=== PATIENT | female | born 1995 | race Caucasian/White ===

== ENCOUNTER → 2018-09-12 | Outpatient (CLI) | payer OTHER ==
[~2018-09-12] VITALS: Ht 167.6 cm; Wt 85.3 kg
[~2018-09-12] MED LIST: ACHD5005 PO; BIRTH CONTROL PO; ETON1VAG VG; HYDR-1231 PO; IBUP-1773 PO; SULF1TAB38 PO
== END | disposition home or self-care (01) ==
LOC: PREOP 15:02
PROVIDERS: ATTEND Obstetrics & Gynecology
DX: Z01.818 Encounter for other preprocedural examination (principal)

== ENCOUNTER → 2018-09-12 | Outpatient (CLI) | payer OTHER ==
--- NOTE | 2018-09-12 13:15 | Diagnostic Imaging Report ---
PROCEDURE: US Non-ob pelvis comp/trans. TECHNIQUE: Multiple realtime grayscale images were obtained of the pelvis in various projections endovaginally. Transabdominal imaging was also performed. INDICATION: Pelvic mass. The uterus is small measuring 4.7 x 3.4 x 3.3 cm. Endometrium is 5 mm in thickness. No myometrial mass is detected. The right ovary was not visualized. Left ovary contains a large complex cystic mass measuring 10.2 x 8.6 x 6.9 cm. This does contain internal debris. No definite internal vascularity is seen. IMPRESSION: Large complex cystic mass involving the left adnexa, likely ovarian and secondary to hemorrhagic cyst. Close followup is recommended to confirm stability. Dictated by: Dictated on workstation # [id number]
== END ==
LOC: RAD 11:49
PROVIDERS: ATTEND Nurse Practitioner
DX: R19.09 Other intra-abdominal and pelvic swelling, mass and lump (principal)
CPT/HCPCS: 76830; 76856

== ENCOUNTER 2018-09-13 05:51 | Day surgery (SDC) | payer OTHER ==
[~2018-09-13] VITALS: Ht 167.6 cm; Wt 85.3 kg
[~2018-09-13 05:51] MED LIST changes: -ACHD5005 PO; -IBUP-1773 PO
--- OUTSIDE RECORDS SUMMARY | 2018-09-13 05:55 | XMS REPORT ---
Author Author SYDNEE VALERIO Organization [facility] Address [address] [place] [address] Phone Unavailable Care Team Providers Care Leasing Consultant Name Role Phone SYDNEE VALERIO Unavailable Unavailable PROBLEMS Unknown Problems ALLERGIES No Information ENCOUNTERS Encounter Location Date Diagnosis [facility] [address], [place] [address] March, Visit for TB skin test Z11.1 and Encounter for physical examination related to employment Z02.1 [facility] [address], [place] [address] Jul, Screening for STDs (sexually transmitted diseases) Z11.3 [facility] [id number] [place] [address] Jan, Encounter for PPD test Z11.1 [facility] [id number] [place] [address] May, MENINGOCOCCAL DX V03.89 IMMUNIZATIONS No Known Immunizations SOCIAL HISTORY Never Assessed REASON FOR VISIT Work Physical/TB (wants it ran through insurance)-Elena BURNHAM PLAN OF CARE Activity Details Follow Up 48-72 hours Reason: VITAL SIGNS Height 66.5 in 2018-03-14 Weight 183 lbs 2018-03-14 Heart Rate 97 bpm 2018-03-14 BMI 29.09 kg/m2 2018-03-14 Blood pressure systolic 118 mmHg 2018-03-14 Blood pressure diastolic 80 mmHg 2018-03-14 MEDICATIONS Unknown Medications RESULTS No Results PROCEDURES Procedure Date Ordered Result Body Site TB INTRADERMAL 2018-03-14 Negative TB INTRADERMAL TEST March 14, 2018 INSTRUCTIONS MEDICATIONS ADMINISTERED No Known Medications
--- OUTSIDE RECORDS SUMMARY | 2018-09-13 05:55 | XMS REPORT ---
Author ISMAEL Ocampo [facility] eClinicalWorks Address Unknown Phone Unavailable Care Team Providers Care Train Crew Member Name Role Phone ISMAEL SALMON CP Unavailable Allergies No Known Allergies Problems Problem Type Condition Code Onset Dates Condition Status Assessment Encounter for PPD test Z11.1 Active Medications No Known Medications Procedures Procedure Coding System Code Date TB INTRADERMAL TEST CPT-4 79310 February 14, 2016 Results No Known Results Summary Purpose eClinicalWorks Submission
--- OUTSIDE RECORDS SUMMARY | 2018-09-13 05:55 | XMS REPORT ---
Author Author JEFFREY PALAFOX [facility] Address [address] [place] [address] Care Team Providers Care Actuarial Intern Name Role Phone JEFFREY PALAFOX Unavailable PROBLEMS Unknown Problems ALLERGIES No Known Allergies ENCOUNTERS Encounter Location Date Diagnosis [facility] [address] [address] March, [facility] [id number] [address] Jul, Screening for STDs (sexually transmitted diseases) Z11.3 [place] [address] [address] Jan, Encounter for PPD test Z11.1 [facility] [id number] [address] May, MENINGOCOCCAL DX V03.89 IMMUNIZATIONS No Known Immunizations SOCIAL HISTORY Never Assessed REASON FOR VISIT STD check- boyfriend has chlamydia JStrasserRN PLAN OF CARE Activity Details Follow Up prn Reason: VITAL SIGNS Height 66.5 in 2017-07-29 Weight 177.6 lbs 2017-07-29 Temperature 98.6 degrees Fahrenheit 2017-07-29 Heart Rate 72 bpm 2017-07-29 Respiratory Rate 18 2017-07-29 BMI 28.23 kg/m2 2017-07-29 Blood pressure systolic 126 mmHg 2017-07-29 Blood pressure diastolic 88 mmHg 2017-07-29 MEDICATIONS Unknown Medications RESULTS Name Result Date Reference Range CULTURE, GENITAL 2017-07-29 Genital Culture, Routine Final report Result 1 TRICHOMONAS (IN HOUSE) 2017-07-29 TRICHOMONAS NEGATIVE Control + Lot # [id number] Exp date 2018-03-31 BACTERIAL VAGINOSIS (IN HOUSE) 2017-07-29 RESULTS NEGATIVE Control + Lot # [id number] Exp date 2018-03 GC/CHLAM PROBE (STATE) 2017-07-29 CHLAMYDIA GC PROCEDURES Procedure Date Ordered Result Body Site No Charge Jul 29, 2017 CULTURE, BACTERIA, OTHER Jul 29, 2017 TRICHOMONAS ASSAY W/OPTIC Jul 29, 2017 Bacterial Vaginosis In House Jul 29, 2017 INSTRUCTIONS MEDICATIONS ADMINISTERED No Known Medications
--- OUTSIDE RECORDS SUMMARY | 2018-09-13 05:56 | XMS REPORT | Continuity of Care Document ---
Author Author [facility] Organization [facility] Address Unknown Phone Unavailable Allergies Active Description Code Type Severity Reaction Onset Reported/Identified Relationship to Patient Clinical Status Yes No Known Drug Allergies [id number] Drug Allergy Unknown N/A 09/12/2018 Medications There is no data. Problems There is no data. Procedures There is no data. Results Test Result Range CULTURE, GENITAL - 07/29/17 16:22 Genital Culture, Routine Final report NRG Result 1 NRG Genital Culture, Routine - 07/29/17 16:22 Genital Culture, Routine Note Encounters ACCT No. Visit Date/Time Discharge Status Pt. Type Provider Facility Loc./Unit Complaint [id number] 07/05/2014 22:25:00 07/05/2014 23:25:00 DIS Emergency [id number] 09/13/2018 05:51:00 ACT Outpatient NAY FISHMAN DO [facility] SYMPTOMATIC LEFT OVARIAN CYST, PELVIC PAIN [id number] 09/12/2018 15:02:00 ACT Outpatient NAY FISHMAN DO [facility] PREOP SYMPTOMATIC LEFT OVARIAN CYST, PELVIC PAIN [id number] 09/12/2018 11:49:00 ACT Outpatient BETH GUEVARA [facility] RAD PELVIC MASS [id number] 03/14/2018 10:00:00 03/14/2018 23:59:59 CLS Outpatient ZEN MCKEON [facility] [id number] 07/29/2017 15:40:00 Document Registration [id number] 08/01/2017 13:05:00 Document Registration
[2018-09-13] MEDS: LACTATED RINGERS 1,000 ML IV PRN ×2 (06:15→08:30)
[2018-09-13 06:25] VITALS: BP 128/81
[2018-09-13] MEDS ORDERED: MIDAZOLAM 2 MG/2 ML (VERSED) VIAL ONE (06:45)
[2018-09-13] MEDS ORDERED: DEXAMETHASONE 10 MG/ML (DECADRON) 1 ML VIAL ONE (06:45)
[2018-09-13] MEDS ORDERED: fentaNYL INJECTION 100 MCG/2 ML AMP ONE ×2 (06:45→09:57)
[2018-09-13] MEDS ORDERED: ONDANSETRON 4 MG/2 ML (SDV) Z0FRAN ONE (06:45)
[2018-09-13] MEDS ORDERED: LIDOCAINE PF 2% 5 ML (XYLOCAINE) VIAL ONE (06:45)
[2018-09-13] MEDS ORDERED: proPOfol 200 MG/20 ML (DIPRIVAN) VIAL IV ONE (06:45)
[2018-09-13] MEDS ORDERED: SEVOFLURANE (ULTANE) 15 ML INHAL SOLN ONE ×6 (06:45→09:59)
[2018-09-13] MEDS ORDERED: ROCURONIUM 10 MG/ML 5 ML SYRINGE IV ONE (06:48)
[2018-09-13] MEDS ORDERED: ceFAZolin 1 GM/NS 50 ML IVPB IV ONE ×2 (07:15)
[2018-09-13] MEDS ORDERED: BUP/EPI 0.5% 1:200,000 (SENSORCAINE) 30 ML VIAL ONE (07:35)
[2018-09-13] MEDS ORDERED: MEPERIDINE (DEMEROL) INJ 50 MG/ML IVP ONE (09:00)
[2018-09-13] MEDS ORDERED: ONDANSETRON 4 MG/2 ML (SDV) Z0FRAN IVP PRN ×2 (09:00→10:15)
[2018-09-13] MEDS ORDERED: morphine INJ 10 MG/ML 1ML (SYR OR VIAL) IVP ONE (09:00)
[2018-09-13] MEDS ORDERED: HYDROmorphone 2 MG/ML VIAL (DILAUDID) IV ONE (09:00)
[2018-09-13] MEDS ORDERED: NEOSTIGMINE 1 MG/ML 5 ML SYRINGE ONE (09:06)
[2018-09-13] MEDS ORDERED: GLYCOPYRROLATE 0.2 MG/ML (ROBINUL) 2 ML VIAL ONE (09:06)
[2018-09-13] MEDS ORDERED: BUPIVACAINE 0.25% 30 ML (SENSORCAINE) VIAL ONE (09:50)
[2018-09-13] MEDS ORDERED: KETOROLAC 30 MG/ML VIAL ONE (10:05)
[2018-09-13] MEDS ORDERED: D5 LR IV SOLUTION 1,000 ML IV SCH (10:13)
[2018-09-13] MEDS ORDERED: KETOROLAC 30 MG/ML VIAL IVP ONE ×2 (10:15)
[2018-09-13] MEDS ORDERED: HYDROcodone/APAP 5 MG/325 MG (LORTAB) TAB PO PRN (10:15)
[2018-09-13] MEDS ORDERED: KETOROLAC 30 MG/ML VIAL IVP PRN (10:15)
--- NOTE | 2018-09-13 10:18 | Operative Report ---
Operative Report Date of Procedure/Surgery Sep 13, 2018 Surgeon (s) NAY FISHMAN DO Wafer Line Worker (s): DIVYA Jimenez sociology research assistant necessary to retract important neurovas structure Post-Operative Diagnosis complete torsion (x3) of right tube and ovary normal appearing left ovary and tube normal uterus Procedure Performed laparoscopy with right salpingoophorectomy Nexplanon implant placement Description of Procedure Anesthesia Type: General Estimated blood loss (mL): minimal Specimen(s) collected/removed cyst fluid right tube and ovary Description of the Procedure Philippe Fernández, MS III Findings of the Procedure 10+ cm ovarian cyst with necrotic tube, torsed x 3 times Fluid in the cyst appeared bloody and otherwise clear uterus was normal but shifted to the right and the ovary was posterior to the uterus and on the left side make the laterality confusing for the CT and the US Allergies and Home Medications Allergies Coded Allergies: No Known Drug Allergies (Unverified , 09/12/18) NAY FISHMAN DO Sep 13, 2018 10:18
[2018-09-13] MEDS ORDERED: ACHD5005 PO (10:19)
[2018-09-13] MEDS ORDERED: IBUP-1773 PO (10:19)
--- NOTE | 2018-09-13 10:23 | Discharge Inst-Women's Service ---
Discharge Inst-Women's Serv Depart Medication/Instructions New, Converted or Re-Newed RX: RX on Chart Instructions nothing in the vagina for 2 weeks keep the dressing on the arm until tomorrow. May use ice if needed. Remove the dressing but leave the steristrips in place until they fall off leave the abdominal dressings in place for 3 days and then remove If become wet or soiled may remove Final Diagnosis complete torsion of the right tube and ovary with resultant necrosis placement of Nexplanon Consults/Follow Up Additional Follow Up: Yes (1-2 weeks for post operative exam) Activity Activity: Activity as Tolerated Driving Instructions: No Driving for 24 Hours NO SMOKING: NO SMOKING Nothing Inside Vagina: No Douching, No [place], No Tampons Diet Discharge Diet: No Restrictions Symptoms to Report to : Swelling Increased, Pain Increased, Fever Over 101 Degrees F, Vaginal Bleeding Increase, Cramps in Feet or Legs, Vaginal Discharge Foul For Any Problems or Questions: Contact Your Physician Skin/Wound Care Infection Signs and Symptoms: Increased Redness, Foul Odor of Wound, Increased Drainage, Skin Itchy or Has a Rash, Increased Swelling, Temperature Above 101 F Operative Area Clean and Dry: You May Remove Bandage (see above) Stitches/Angwin/Dermabond: Dermabond Bathing Instructions: ANY Henderson DO Sep 13, 2018 10:23
--- NOTE | 2018-09-13 10:38 | Anesthesia-General Post-Op ---
General Patient Condition Mental Status/LOC: Same as Preop Cardiovascular: Satisfactory Nausea/Vomiting: Absent Respiratory: Satisfactory Pain: Controlled Complications: Absent Post Op Complications Complications None Follow Up Care/Instructions Patient Instructions None needed. Anesthesia/Patient Condition Patient Condition Patient is doing well, no complaints, stable vital signs, no apparent adverse anesthesia problems. No complications reported per nursing. KAMILA ACOSTA CRNA Sep 13, 2018 10:38
[2018-09-13 11:15] VITALS: BP 120/75
[2018-09-13 11:45] VITALS: BP 112/68
[2018-09-13 12:00] VITALS: BP 112/68
== END 2018-09-13 12:10 | disposition home or self-care (01) ==
LOC: SDC 05:51
PROVIDERS: ATTEND Obstetrics & Gynecology
DX: N83.53 Torsion of ovary, ovarian pedicle and fallopian tube (principal)
CPT/HCPCS: 84703; 87081